=== PATIENT | male | born 1995 | race Caucasian/White ===

== ENCOUNTER 2017-01-29 16:51 | Emergency (ER) | payer OTHER ==
--- NOTE | 2017-01-29 19:04 | CT ---
CT BRAIN WITHOUT CONTRAST: History: 21-year-old male with headache, left sided facial tingling which began 5 days ago. Technique: Noncontrast enhanced CT images of the brain obtained. FINDINGS: Images demonstrate the brain to be unremarkable. No evidence of intracranial masses, hemorrhages, st rokes or contusions seen. Ventricles are of normal size. IMPRESSION: Normal CT brain. POS: [facility]
== END 2017-01-29 19:24 | disposition home or self-care (01) ==
LOC: ERS 16:51
DX: G43.809 Other migraine, not intractable, without status migrainosus (principal)
CPT/HCPCS: 70450

== ENCOUNTER 2018-07-09 12:10 | Emergency (ER) | payer BC, OTHER ==
[2018-07-09 12:36] LABS: Bilirubin Negative (Negative); Blood, Urine Negative (Negative); Clarity CLEAR (Clear); Glucose, Urine (Dipstick) Negative (Negative); Leukocyte Negative (Negative); Nitrite Negative (Negative); Protein, Urine (Dipstick) Negative (Neg-Trace); Specific Gravity, Urine 1.004 (1.002-1.036); Urobilinogen 0.2 mg/dL (0.2-1.0)
--- NOTE | 2018-07-09 12:57 | ULT ---
FTesticular ultrasound: 07/27/2018 HISTORY: Right-sided testicular pain for one day TECHNIQUE: Multiplanar grayscale sonographic imaging of the scrotal contents including Doppler interr ogation of the testicles with color flow and spectral analysis. FINDINGS: The right testicle measures 4.1 x 3.8 cm. Right epididymal head measures 8 x 8 mm. Left testicle measures 4.6 x 3.1 cm. Left epididymal head measures 8 x 9 mm. No hydrocele noted on either side. Normal blood flow noted within both testicles. Incidental note mad e of a 4 mm left epididymal head cyst. IMPRESSION: No acute findings.
== END 2018-07-09 13:07 | disposition home or self-care (01) ==
LOC: ERS 12:10
DX: N50.811 Right testicular pain (principal)
CPT/HCPCS: 76870; 81003; 93976